=== PATIENT | female | born 1935 | race Caucasian/White ===

== ENCOUNTER → 2017-05-15 | Outpatient (CLI) | payer OTHER ==
[~2017-05-15] MED LIST: DOXYCYCLINE 10100 M1 PO; EVISTA PO; LIPITOR10 MG PO; LISINOPRIL10 MG PO; NEPHROCAPS SOFT1 CAP PO; NORCO 5-325 TA1 EACH PO; PRILOSEC 20 MG20 MG PO
--- NOTE | 2017-05-15 11:24 | 2DMMODE ---
[place] [address] 2 D/M-MODE ECHOCARDIOGRAM Name: NATHANIEL CHAMBERS Room: [facility]#: [id number] Admission: 05/15/17 Attend Phys: Anali Elena Discharge: Date of : 35 Date of Service: 05/15/17 1123 Report #: [id number] THIS REPORT FOR: //name// APPROVED REPORT Study performed: 05/15/2017 08:56:14 EXAM: Comprehensive 2D, Doppler, and color-flow Echocardiogram Patient Location: Out-Patient Status: routine BSA: 1.76 HR: 68 bpm BP: 152/82 mmHg Rhythm: NSR Other Information Study Quality: Good Indications Dyspnea Palpitations 2D Dimensions LVEF(%): 61.77 (>50%) IVSd: 9.62 (7-11mm) LVOT Diam: 20.38 (18-24mm) LVDd: 34.32 mm PWd: 8.54 (7-11mm) Ascending Ao: 35.79 (22-36mm) LVDs: 23.21 (25-40mm) Aortic Root: 28.92 mm Quezada's LVEF: 61.77 % Volumes Left Atrial Volume (Systole) LA ESV Index: 30.30 mL/m2 Aortic Valve AoV Peak Porfirio.: 1.63 m/s AO Peak Gr.: 10.65 mmHg LVOT Max P.31 mmHg AO Mean Gr.: 5.68 mmHg LVOT Mean P.84 mmHg LVOT Max V: 1.26 m/s AO V2 VTI: 33.29 cm LVOT Mean V: 0.75 m/s LEXIE (VTI): 2.79 cm2 LVOT V1 VTI: 28.43 [place] [address] 2 D/M-MODE ECHOCARDIOGRAM Name: NATHANIEL CHAMBERS Room: [facility]#: [id number] Admission: 05/15/17 Attend Phys: Anali Elena Discharge: Date of : 35 Date of Service: 05/15/17 1123 Report #: [id number] E/A Ratio: 1.02 MV Decel. Time: 271.42 ms MV E Max Porfirio.: 1.11 m/s MV PHT: 78.71 ms MVA (PHT): 2.79 cm2 TDI E/Lateral E': 15.86 E/Medial E': 11.10 Medial E' Porfirio.: 0.10 m/s Lateral E' Porfirio.: 0.07 m/s Pulmonary Valve PV Peak Porfirio.: 0.82 m/s PV Peak Gr.: 2.68 mmHg Tricuspid Valve TR Peak Gr.: 19.36 mmHg RVSP: 24.00 mmHg Left Ventricle The left ventricle is normal size. There is normal LV segmental wall motion. There is normal left ventricular wall thickness. Left ventricular systolic function is normal. The left ventricular ejection fraction is within the normal range. LVEF is 60%. The left ventricular diastolic function is normal. Right Ventricle The right ventricle is normal size. The right ventricular systolic function is normal. Atria The left atrium size is normal. The right atrium size is normal. Aortic Valve Mild aortic valve sclerosis. No aortic regurgitation is present. There is no aortic valvular stenosis. Mitral Valve The mitral valve is mildly thickened. Trace mitral regurgitation. No evidence of mitral valve stenosis. Tricuspid Valve The tricuspid valve is normal in structure. Trace tricuspid regurgitation. The RVSP is ____24___ mmHg. Pulmonic Valve The pulmonary valve is normal in structure. There [place] [address] 2 D/M-MODE ECHOCARDIOGRAM Name: NATHANIEL CHAMBERS Room: [facility]#: [id number] Admission: 05/15/17 Attend Phys: Anali Elena Discharge: Date of : 35 Date of Service: 05/15/17 1123 Report #: [id number] valvular regurgitation. Great Vessels The aortic root is normal in size. IVC is normal in size and collapses with >50% inspiration Pericardium There is no pericardial effusion. <Conclusion> The left ventricle is normal size. There is normal left ventricular wall thickness. Left ventricular systolic function is normal. The left ventricular ejection fraction is within the normal range. LVEF is 60%. The right ventricle is normal size. The left atrium size is normal. Mild aortic valve sclerosis. No aortic regurgitation is present. There is no aortic valvular stenosis. The mitral valve is mildly thickened. Trace mitral regurgitation. No evidence of mitral valve stenosis. The tricuspid valve is normal in structure. Trace tricuspid regurgitation. The RVSP is ____24___ mmHg. IVC is normal in size and collapses with >50% inspiration There is no pericardial effusion. There is normal LV segmental wall motion. <ELECTRONICALLY SIGNED> By: Theron Pina MD, FACC 05/15/17 1123 1123 112 Theron Pina MD, FACC /INF
--- NOTE | 2017-05-16 12:27 | CARDNUC ---
[place] [address] CARDIAC NUCLEAR IMAGING REPORT Name: NATHANIEL CHAMBERS Room: [facility]#: [id number] Admission: 05/15/17 Attend Phys: Aanli Elena Discharge: Date of : 35 Date of Service: 05/16/17 1227 Report #: [id number] THIS REPORT FOR: //name// APPROVED REPORT Exam: Nuclear Stress Test Indication: Dyspnea, Palpitations Patient Location: Out-Patient Stress Tech: [facility] Stress Nurse: Michelle Tirado RN Ht: 5 ft 2 in Wt: 165 lbs BSA: 1.76 m2 BMI: 30.1 Medical History Medical History: hyperlipidemia, hypertension Medications: valsartan Allergies: nkda Cardiac Risk Factors: age, hyperlipidemia, hypertension Previous Cardiac Procedures: none Exercise History: Indeterminate NM EXAM: Myocardial Perfusion REST/STRESS Imaging Protocol: Rest Tc-99m/Stress Tc-99m 1 day Resting Data Rest SPECT myocardial perfusion imaging was performed in supine position 45 minutes following the intravenous injection of 11.8 mCi of Tc-99m Sestamibi. Time of rest injection: 744 Date: 05/15/2017 The images were gated to evaluate regional wall motion and calculate left ventricular ejection fraction. Administration Route: IV Administration Site: Right Hand Pharmacologic Stress Pharmacologic stress test was performed by injecting Regadenoson 0.4 mg IV push followed by the intravenous injection of 36 mCi of Tc-99m Sestamibi. Time of stress injection: 929 Date: 05/15/2017 Administration Route: IV Administration Site: Right Hand Gated Stress SPECT was performed 45 minutes after stress injection. The images were gated to evaluate regional [place] [address] CARDIAC NUCLEAR IMAGING REPORT Name: NATHANIEL CHAMBERS Room: [facility]#: [id number] Admission: 05/15/17 Attend Phys: Anali Elena Discharge: Date of : 35 Date of Service: 05/16/17 1227 Report #: [id number] left ventricular ejection fraction. Prone imaging was performed. Study Quality Study: Good Artifact: No artifact Study Data At rest, the left ventricular ejection fraction was 85%.. Post stress, the left ventricular ejection was 78%.. TID = 1.10. Perfusion Normal left ventricular perfusion. Wall Motion Normal left ventricular wall motion. Nuclear Conclusion ECG Findings: negative for ischemia Clinical Findings: negative for ischemia Nuclear Findings: negative for ischemia Exercise Capacity: not assessed Left Ventricular Function: normal Risk Study: low Myocardial perfusion images show no defect to suggest infarct or ischemia. Left ventricular systolic function appears normal on gated studies. This is a low risk study. Interpreted by: Lewis Ag M.D. [facility] Electronically Approved: 05/16/2017 12:27:12 Stress Test Details Stress Test: Pharmacologic stress testing performed using 0.4 mg of regadenoson per 5 mL given IV over 10 seconds. Reason for pharmacologic stress test: physical limitation. HR Resting HR: 73 bpm Max Heart Rate (APMHR): 139 bpm Max HR Achieved: 74 bpm Target HR (85% APMHR): 118 bpm % of APMHR: 53 Recovery HR: 94 bpm BP Resting BP: 152/82 mmHg Max BP: 114/65 [place] [address] CARDIAC NUCLEAR IMAGING REPORT Name: NATHANIEL CHAMBERS Room: [facility]#: [id number] Admission: 05/15/17 Attend Phys: Anali Elena Discharge: Date of : 35 Date of Service: 05/16/17 1227 Report #: [id number] ECG Resting ECG: Sinus Rhythm, normal EKG Stress ECG: Sinus Rhythm, normal EKG ST Change: None Arrhythmia: None Recovery ECG: Sinus Rhythm, normal EKG Recovery ST Change: None Recovery Arrhythmia: None Clinical Reason for Termination: Completed protocol Exercise duration: 0 min sec Exercise capacity: 1 METs The patient had symptoms of nausea, lightheadedness and shortness of breath attributed to medication effect. She had no chest pain with Lexiscan infusion. Nurse Comments pt co soa, nausea, lightheadedness, resolved with caffiene Stress ECG Conclusion The baseline 12-lead electrocardiogram shows normal sinus rhythm without significant ST or T wave abnormality. EKGs obtained during and post Lexiscan infusion show sinus rhythm with no significant ST or T wave changes when compared to baseline. There were no stress-induced arrhythmias. <Conclusion> The baseline 12-lead electrocardiogram shows normal sinus rhythm without significant ST or T wave abnormality. EKGs obtained during and post Lexiscan infusion show sinus rhythm with no significant ST or T wave changes when compared to baseline. There were no stress-induced arrhythmias. <ELECTRONICALLY SIGNED> By: Lewis Ag MD, FACC 05/16/17 1227 122 1227 Lewis Ag MD, FACC /INF
== END ==
LOC: M.CRD 05-12 15:37 → M.NUC 07:31
DX: I35.8 Other nonrheumatic aortic valve disorders (principal); R89.9 Unspecified abnormal finding in specimens from other organs, systems and tissues

== ENCOUNTER → 2017-07-10 | Outpatient (CLI) | payer OTHER | LOC: M.RAD 07:27 | DX: Z12.31 Encounter for screening mammogram for malignant neoplasm of breast (principal) ==

== ENCOUNTER → 2018-08-20 | Outpatient (CLI) | payer OTHER | LOC: M.RAD 07:20 | DX: Z12.31 Encounter for screening mammogram for malignant neoplasm of breast (principal) ==

== ENCOUNTER → 2019-08-23 | Outpatient (CLI) | payer OTHER | LOC: M.RAD 09:00 | PROVIDERS: ATTEND Emergency Medicine | DX: Z12.31 Encounter for screening mammogram for malignant neoplasm of breast (principal); M81.0 Age-related osteoporosis without current pathological fracture ==